=== PATIENT | female | born 1980 | race Caucasian/White ===

== ENCOUNTER 2020-09-15 23:44 | Emergency (ER) | payer OTHER ==
[2020-09-16] MEDS ORDERED: HYDROcodone/Acetaminophen 5/325 mg Tablet ONE
[2020-09-16] MEDS ORDERED: Clindamycin 150 MG CAP ONE ×2 (00:01)
[2020-09-16] MEDS ORDERED: Clindamycin 300 MG/2 ML VIAL ONE (00:01)
== END 2020-09-16 00:11 | disposition home or self-care (01) ==
LOC: MADERS 23:44
DX: L03.311 Cellulitis of abdominal wall (principal)
CPT/HCPCS: 99283; J3490